=== PATIENT | female | born 1975 | race Caucasian/White ===

== ENCOUNTER → 2019-10-26 10:06 | Outpatient (CLI) | payer OTHER, SELFPAY ==
--- NOTE | ~2019-10-26 | MM_ITS ---
EXAMINATION: MM diagnostic mammo unilat RT HISTORY: Focal architectural distortion 8 cm deep to the nipple in the midline on CC projection of bilateral digital screening mammogram examination TECHNIQUE: Additional 3-D tomosynthesis images of the right breast were performed and synthetic 2-D i mages were generated. CAD analysis was submitted and interpreted. COMPARISON: 10/11/2019 bilateral digital screening mammogram FINDINGS: The suggest architectural distortion deep in the mid right breast on CC projection on scree dayna mammogram of 10/11/2019 is not confirmed on these supplemental views including spot compression C C view of the area. IMPRESSION: 1. No mammographic evidence of malignancy 2. Routine annual mammographic screening follow-up is recommended BI-RADS Category 1: Negative Reviewed, dictated and finalized at location A. [employer]
== END ==
PROVIDERS: Visit Provider Obstetrics & Gynecology
DX: R92.8 Other abnormal and inconclusive findings on diagnostic imaging of breast (principal)
CPT/HCPCS: 77065

== ENCOUNTER → 2021-01-11 16:12 | Outpatient (CLI) | payer OTHER, SELFPAY ==
--- NOTE | ~2021-01-11 | MM_ITS ---
EXAMINATION: MM screening christina BI w tenisha HISTORY: Screening TECHNIQUE: Craniocaudal and mediolateral oblique 3-D tomosynthesis images were obtained and synthetic 2-D images were generated. CAD analysis was submitted and interpreted. COMPARISON: Comparison to multiple prior studies sequentially, with oldest reviewed study dated 01/09. BREAST PARENCHYMAL COMPOSITION: The breasts are heterogeneously dense, which may obscure small masses . FINDINGS: There is no evidence of suspicious mass, calcification, or architectural distortion to sugg est malignancy in either breast. There has been no suspicious interval change. IMPRESSION: 1. No mammographic evidence of malignancy. 2. Recommend routine screening mammography in one year. BI-RADS Category 1: Negative Reviewed, dictated and finalized at location A.
== END ==
PROVIDERS: Visit Provider Obstetrics & Gynecology
DX: Z12.31 Encounter for screening mammogram for malignant neoplasm of breast (principal)
CPT/HCPCS: 77063; 77067

== ENCOUNTER → 2021-01-19 00:46 | Outpatient (CLI) | payer OTHER, SELFPAY ==
[2021-01-19 21:02] LABS: SARS-CoV-2 RNA PCR Negative
== END ==
PROVIDERS: Visit Provider Internal Medicine Gastroenterology
DX: Z01.812 Encounter for preprocedural laboratory examination (principal); Z20.822 Contact with and (suspected) exposure to COVID-19
CPT/HCPCS: C9803; U0003; U0005

== ENCOUNTER 2021-01-22 02:53 | Day surgery (SDC) | payer OTHER, SELFPAY ==
[2021-01-11 10:15] VITALS: BMI 37.8
[2021-01-22 10:40] VITALS: BP 135/85; PULSE 92; RESP 20; TEMP 36.6; O2SAT 92; BMI 38.8
--- NOTE | 2021-01-22 10:56 | SUR.PREOP ---
test not needed per Dr. Lima.
[2021-01-22] MEDS: LACTATED RINGERS 1,000 ML 150 ML IV CONT (11:07)
--- NOTE | 2021-01-22 11:13 | WPDANESEPPF ---
Anes - Initial Pre Proc Eval Procedure: Operation Date: 01/22/21 11:30 Proposed Procedures p Esophagogastroduodenoscopy And Screening Colonoscopy - Orlando Manzano MD Date/Time: 01/22/21 11:13 Surgeon: Orlando Manzano MD Pre Op Diagnosis: GERD Patient Data Age: 45 Gender: F Height: 5 ft 4 in Weight: 102.6 kg Last Vital Signs Temp 97.8 F 01/22/21 10:40 Pulse 92 01/22/21 10:40 Resp 20 01/22/21 10:40 BP 135/85 01/22/21 10:40 Pulse Ox 92 01/22/21 10:40 Allergies Allergy/AdvReac Type Severity Reaction Status Date / Time chlorpheniramine Allergy Severe passes out Verified 01/22/21 10:39 dextromethorphan Allergy Severe passes out Verified 01/22/21 10:39 guaifenesin Allergy Severe PASSES OUT Verified 01/22/21 10:39 pheniramine Allergy Severe passes out Verified 01/22/21 10:39 phenylephrine Allergy Severe passes out Verified 01/22/21 10:39 phenylpropanolamine Allergy Severe passes out Verified 01/22/21 10:39 adhesive tape Allergy Mild RASH Verified 01/22/21 10:39 Home Medications Medication Instructions Recorded Confirmed Type amitriptyline 25 mg DAILY 01/11/21 01/11/21 History cholecalciferol (vitamin D3) 50 mcg PO DAILY 01/11/21 01/11/21 History [Vitamin D3] cyanocobalamin (vitamin B-12) 1,000 mcg PO DAILY 01/11/21 01/11/21 History [Vitamin B-12] docusate sodium [Colace] 50 mg PO DAILY 01/11/21 01/11/21 History labetalol 100 mg PO BID 01/11/21 01/11/21 History lisinopril 10 mg PO DAILY 01/11/21 01/11/21 History loratadine 10 mg PO DAILY 01/11/21 01/11/21 History melatonin 3 mg PO HS PRN 01/11/21 01/11/21 History multivit with min-folic acid 1 tablet PO DAILY 01/11/21 01/11/21 History [Adult One Daily Multivitamin] omeprazole 40 mg PO DAILY 01/11/21 01/11/21 History polyethylene glycol 3350 [Miralax] 17 g PO DAILY 01/11/21 01/11/21 History Patient hx anesthesia problems: none Family hx anesthesia problems: none PMFSH Past Medical History Medical History (Updated 01/22/21 @ 11:13 by Nghia Lima MD) GERD (gastroesophageal reflux disease) Hypertension ALANA (obstructive sleep apnea) Social History Social History Smoking status: Former smoker Substance use type: does not use Anes - Eval Final PreProcedure Day of Procedure 01/22/21 11:13 Patient weight: obese Heart: regular rate and rhythm Lungs: clear to auscultation Airway: Mallampati scale class II Neurological: alert and oriented Last oral intake: >/= 8 hours ASA classification: III Emergent: no Anesthetic plan: proceed Anesthesia type and monitoring: general GIVS and standard monitoring Informed Consent: The patient's anesthetic plan and its attendant risks and benefits were discussed with the patient/family/POA. Questions were solicited and answers provided to the satisfaction of the patient/family/POA.
--- NOTE | 2021-01-22 11:22 | PM.HPGS ---
History of Present Illness History of Present Illness Consent: Risks, benefits, and alternatives have been discussed and questions answered. Patient agrees to proceed with procedure. Chief complaint: GERD Narrative: Alina Garcia is a 45 year old female referred for screening colonoscopy and for investigation of chronic gastroesophageal reflux. She has been on various medications for heartburn for the last 10 years. If she skips a dose of omeprazole she will have severe heartburn. Typically she has burning in the substernal area, often at night. Occasionally it may come up into her throat. Lately she will have episodes where her stomach in the epigastric area becomes distended and hard. There is no weight loss or vomiting Review of Systems Review of Systems: All systems reviewed & are unremarkable except as noted in HPI and below PMFSH Past Medical History Medical History GERD (gastroesophageal reflux disease) Hypertension ALANA (obstructive sleep apnea) Social History Social History Smoking status: Former smoker Substance use type: does not use Meds Home Medications and Allergies Home Medications Medication Instructions Recorded Confirmed Type amitriptyline 25 mg DAILY 01/11/21 01/11/21 History cholecalciferol (vitamin D3) 50 mcg PO DAILY 01/11/21 01/11/21 History [Vitamin D3] cyanocobalamin (vitamin B-12) 1,000 mcg PO DAILY 01/11/21 01/11/21 History [Vitamin B-12] docusate sodium [Colace] 50 mg PO DAILY 01/11/21 01/11/21 History labetalol 100 mg PO BID 01/11/21 01/11/21 History lisinopril 10 mg PO DAILY 01/11/21 01/11/21 History loratadine 10 mg PO DAILY 01/11/21 01/11/21 History melatonin 3 mg PO HS PRN 01/11/21 01/11/21 History multivit with min-folic acid 1 tablet PO DAILY 01/11/21 01/11/21 History [Adult One Daily Multivitamin] omeprazole 40 mg PO DAILY 01/11/21 01/11/21 History polyethylene glycol 3350 [Miralax] 17 g PO DAILY 01/11/21 01/11/21 History Allergies Allergy/AdvReac Type Severity Reaction Status Date / Time chlorpheniramine Allergy Severe passes out Verified 01/22/21 10:39 dextromethorphan Allergy Severe passes out Verified 01/22/21 10:39 guaifenesin Allergy Severe PASSES OUT Verified 01/22/21 10:39 pheniramine Allergy Severe passes out Verified 01/22/21 10:39 phenylephrine Allergy Severe passes out Verified 01/22/21 10:39 phenylpropanolamine Allergy Severe passes out Verified 01/22/21 10:39 adhesive tape Allergy Mild RASH Verified 01/22/21 10:39 Vital Signs Vital Signs - 24 hr 01/22/21 10:40 Temperature 36.6 C Pulse Rate 92 Respiratory Rate 20 Blood Pressure 135/85 Pulse Oximetry 92 Exam Const: General: alert Orientation/consciousness: patient oriented x3 Resp: Auscultation: clear to auscultation bilaterally Cardio: Rhythm: regular rhythm GI: GI Palp: Yes Soft to palpation and No Tenderness to palpation present (GI) Neuro: General: patient oriented x3 Assessment and Plan Assessment and plan (1) GERD (gastroesophageal reflux disease): Code(s): K21.9 - Gastro-esophageal reflux disease without esophagitis Status: Inactive Assessment and Plan: EGD with possible biopsy or dilatation or cautery. (2) Colon cancer screening: Code(s): Z12.11 - Encounter for screening for malignant neoplasm of colon Status: Acute Assessment and Plan: Colonoscopy with possible biopsy or polypectomy or cautery or injection of substances.
[2021-01-22 12:05] VITALS: BP 117/78; PULSE 86; RESP 12; O2SAT 99
[2021-01-22 12:15] VITALS: BP 126/71; PULSE 74; RESP 18; O2SAT 100
[2021-01-22 12:25] VITALS: BP 130/91; PULSE 72; RESP 18; O2SAT 100
== END 2021-01-22 12:38 | disposition home or self-care (01) ==
PROVIDERS: Visit Provider Internal Medicine Gastroenterology
PROC: 0DJ08ZZ Inspection of Upper Intestinal Tract, Via Natural or Artificial Opening Endoscopic (ICD-10-PCS; CPT 43235; principal; 2021-01-22 11:30)
DX: Z12.11 Encounter for screening for malignant neoplasm of colon (principal); K21.9 Gastro-esophageal reflux disease without esophagitis; I10 Essential (primary) hypertension; G47.33 Obstructive sleep apnea (adult) (pediatric); Z87.891 Personal history of nicotine dependence
CPT/HCPCS: 45378; 43239; 87081; C9803; J2001; J2704; J7120; U0003; U0005

== ENCOUNTER → 2022-01-16 10:04 | Outpatient (CLI) | payer OTHER, SELFPAY ==
--- NOTE | ~2022-01-16 | MM_ITS ---
EXAMINATION: MM screening christina BI w tenisha HISTORY: Screening mammogram TECHNIQUE: Craniocaudal and mediolateral oblique 3-D tomosynthesis images were obtained and synthetic 2-D images were generated. CAD analysis was submitted and interpreted. COMPARISON: 01/11/2021, 10/26/2019, 10/11/2019 bilateral screening mammogram examinations BREAST PARENCHYMAL COMPOSITION: The breasts are heterogeneously dense, which may obscure small masses . FINDINGS: There is no evidence of suspicious mass, calcification, or architectural distortion to sugg est malignancy in either breast. There has been no suspicious interval change. IMPRESSION: 1. No mammographic evidence of malignancy. 2. Recommend routine screening mammography in one year. BI-RADS Category 1: Negative Reviewed, dictated and finalized at location A.
== END ==
PROVIDERS: PCP Obstetrics & Gynecology; Visit Provider Obstetrics & Gynecology
DX: Z12.31 Encounter for screening mammogram for malignant neoplasm of breast (principal)
CPT/HCPCS: 77063; 77067

== ENCOUNTER → 2023-02-20 15:00 | Outpatient (CLI) | payer OTHER, SELFPAY ==
--- NOTE | ~2023-02-20 | MM_ITS ---
EXAMINATION: MM screening christina BI w tenisha HISTORY: Screening mammogram, family history of breast cancer in her mother. TECHNIQUE: Craniocaudal and mediolateral oblique 3-D tomosynthesis images were obtained and synthetic 2-D images were generated. CAD analysis was submitted and interpreted. COMPARISON: 01/16/2022, 01/11/2021, 10/11/2019 BREAST PARENCHYMAL COMPOSITION:The breasts are heterogeneously dense, which may obscure small masses. FINDINGS: No suspicious mass, calcification, or architectural distortion are identified in either varun ast to suggest malignancy. There has been no suspicious interval change. IMPRESSION: No mammographic evidence of malignancy. Recommend routine screening mammography in one year. BI-RADS Category 1: Negative Reviewed, dictated and finalized at location .
== END ==
PROVIDERS: PCP Obstetrics & Gynecology; Visit Provider Obstetrics & Gynecology
DX: Z12.31 Encounter for screening mammogram for malignant neoplasm of breast (principal)
CPT/HCPCS: 77063; 77067

== ENCOUNTER 2024-02-24 10:28 | Outpatient (CLI) | payer OTHER, SELFPAY ==
--- NOTE | ~2024-02-24 | MM_ITS ---
EXAMINATION: MM screening christina BI w tenisha HISTORY: Screening TECHNIQUE: Craniocaudal and mediolateral oblique 3-D tomosynthesis images were obtained and synthetic 2-D images were generated. CAD analysis was submitted and interpreted. COMPARISON: Comparison to multiple prior studies sequentially, with oldest reviewed study dated 06/11. BREAST PARENCHYMAL COMPOSITION: Dense: The breasts are heterogeneously dense, which may obscure small masses FINDINGS: There is no evidence of suspicious mass, calcification, or architectural distortion to sugg est malignancy in either breast. There has been no suspicious interval change. IMPRESSION: 1. No mammographic evidence of malignancy. 2. Recommend routine screening mammography in one year. BI-RADS Category 1: Negative Reviewed, dictated and finalized at location B.
== END 2024-02-24 10:29 ==
PROVIDERS: PCP Obstetrics & Gynecology; Visit Provider Obstetrics & Gynecology
DX: Z12.31 Encounter for screening mammogram for malignant neoplasm of breast (principal)
CPT/HCPCS: 77063; 77067

== ENCOUNTER 2025-02-25 10:12 | Outpatient (CLI) | payer OTHER, SELFPAY ==
--- NOTE | ~2025-02-25 | MM_ITS ---
EXAMINATION: MM screening christina BI w tenisha HISTORY: Screening TECHNIQUE: Craniocaudal and mediolateral oblique 3-D tomosynthesis images were obtained and synthetic 2-D images were generated. CAD analysis was submitted and interpreted. COMPARISON: Comparison to multiple prior studies sequentially, with oldest reviewed study dated 10/11. BREAST PARENCHYMAL COMPOSITION: Dense: The breasts are heterogeneously dense, which may obscure small masses FINDINGS: There is no evidence of suspicious mass, calcification, or architectural distortion to sugg est malignancy in either breast. There has been no suspicious interval change. IMPRESSION: 1. No mammographic evidence of malignancy. 2. Recommend routine screening mammography in one year. BI-RADS Category 1: Negative Reviewed, dictated and finalized at location A.
== END 2025-02-25 10:13 | disposition home or self-care (01) ==
LOC: MICIMG 10:13
PROVIDERS: PCP Obstetrics & Gynecology; Visit Provider Obstetrics & Gynecology
DX: Z12.31 Encounter for screening mammogram for malignant neoplasm of breast (principal)
CPT/HCPCS: 77063; 77067

== ENCOUNTER 2025-05-17 08:21 | Outpatient (CLI) | payer OTHER, SELFPAY ==
--- NOTE | ~2025-05-17 | US_ITS ---
EXAMINATION: US pelvic complete w TV INDICATION: Fibroids. Pelvic pain. Comparison:No prior studies for comparison. TECHNIQUE: Multiple transabdominal and endovaginal sonographic images of the pelvis performed. FINDINGS: The uterus measures 8.1 x 4 x 5.5 cm. Uterus is retroverted. There are small myometrial masses some of which are indistinct, consistent with fibroids, largest measuring approximately 1.8 cm. The endometrial complex measures 4 mm. The right ovary measures 3 x 2.9 x 1.6 cm and the left ovary measures 2.5 x 1.7 x 2.6 cm. There are small follicles in each ovary. Normal doppler signal in both ovaries. There is trace free fluid in the pelvis. There are no abnormal masses seen on either side. IMPRESSION: 1. Retroverted uterus containing multiple small fibroids measuring up to 1.8 cm. Reviewed, dictated and finalized at location A. IMPRESSION: 1. Retroverted uterus containing multiple small fibroids measuring up to 1.8 cm .
== END 2025-05-17 08:22 | disposition home or self-care (01) ==
PROVIDERS: PCP Obstetrics & Gynecology; Visit Provider Obstetrics & Gynecology
DX: N85.4 Malposition of uterus (principal); D25.9 Leiomyoma of uterus, unspecified
CPT/HCPCS: 76830; 76856